=== PATIENT | female | born 1995 | race African-American/Black ===

== ENCOUNTER 2018-10-02 16:16 | Emergency (ER) | payer SELFPAY ==
[2018-10-02 16:30] VITALS: BP 135/84
[2018-10-02] MEDS ORDERED: AZITHROMYCIN 500 MG TABLET PO ONE (17:00)
[2018-10-02] MEDS ORDERED: LIDOCAINE HCL 1% 20ML VIAL (Pyxis) INJ INFIL ONE (17:00)
[2018-10-02] MEDS ORDERED: CEFTRIAXONE SODIUM 250 MG/VIAL IM ONE (17:00)
== END 2018-10-02 17:44 | disposition home or self-care (01) ==
LOC: ER 16:16
DX: S70.311A Abrasion, right thigh, initial encounter (principal); T74.21XA Adult sexual abuse, confirmed, initial encounter; F31.9 Bipolar disorder, unspecified; Y93.89 Activity, other specified; Y92.89 Other specified places as the place of occurrence of the external cause; Y99.8 Other external cause status
CPT/HCPCS: 96372; 99283; J0696; J3490